=== PATIENT | female | born 1975 | race Caucasian/White ===

== ENCOUNTER → 2021-08-17 07:11 | Outpatient (CLI) | payer SELFPAY ==
--- NOTE | 2021-08-17 07:11 | CT_ITS ---
FINAL REPORT CLINICAL HISTORY: chest pain, nonsmoker 5'8 - 183 lbs FINDINGS: CT CORONARY CALCIUM SCORE W/O TECHNIQUE: Thin-section axial images were obtained through the heart and coronary arteries per CT coronary calcium score protocol. This study was performed with techniques to keep radiation doses as low as reasonably achievable (ALARA). Individualized dose reduction techniques using automated exposure control or adjustment of mA and/or kV according to the patient's size were employed. FINDINGS: On the axial images, there is calcification within the right coronary artery. This gives a coronary artery calcium score of 193 based on the Agatston scale. This coronary artery calcium score places the patient within the 98th percentile based on age and gender. There are large calcified mediastinal lymph nodes. There is a left hilar lymph node. The heart size is normal. There is no pleural or pericardial effusion. Limited evaluation of the lungs reveal calcified granulomas in the left upper lobe consistent with prior granulomatous disease. There are postoperative changes in the stomach. IMPRESSION: Coronary artery calcium score of 193 which places the patient in the 98th percentile based on age and gender. Reviewed, Interpreted and Dictated by Sky Patel III, MD Transcribed by Aydee Car Authenticated by Sky Patel III, MD on 08/17/2021 09:42:54 AM [facility]
== END ==
PROVIDERS: PCP Family Medicine; Visit Provider Physician Assistant
DX: R06.00 Dyspnea, unspecified (principal); R07.89 Other chest pain; R94.31 Abnormal electrocardiogram [ECG] [EKG]; E11.9 Type 2 diabetes mellitus without complications
CPT/HCPCS: 75571

== ENCOUNTER → 2021-08-18 10:39 | Outpatient (CLI) | payer BC, SELFPAY | LOC: RT 10:40 | PROVIDERS: PCP Family Medicine; Visit Provider Physician Assistant | DX: R07.89 Other chest pain (principal); R06.00 Dyspnea, unspecified; E13.69 Other specified diabetes mellitus with other specified complication; R94.31 Abnormal electrocardiogram [ECG] [EKG]; Z79.84 Long term (current) use of oral hypoglycemic drugs | CPT/HCPCS: 78452; 93017; 93306; A9502 ==

== ENCOUNTER 2021-09-24 08:29 | Day surgery (SDC) | payer BC, SELFPAY ==
[2021-09-24] VITALS (13 sets, daily range): BP systolic 93–131; BP diastolic 58–68; PULSE 64–88; RESP 16–20; TEMP 36.5; O2SAT 96–100; BMI 27.6
--- NOTE | 2021-09-24 07:07 | IR_ITS ---
APPROVED REPORT Patient Location: Outpatient PROCEDURES Left heart catheterization Left ventriculogram Selective coronary angiogram INDICATION Abnormal noninvasive tests with elevated calcium score, Angina pectoris Informed consent was obtained prior to the procedure. COMPLICATIONS None Estimated Blood Loss: Less than 10 mls TECHNIQUE One percent lidocaine used to anesthetize the right anterior aspect of the wrist. The right radial artery was accessed via the Seldinger technique. A 6 [place] sheath was placed in the right radial artery. 2.5 mg of verapamil, 800 mcg of nitroglycerin, 1mg Lidocaine and 5000 U Heparin were given through the arterial sheath. The papa catheter was also used to perform left heart catheterization, left ventriculogram and selective coronary angiogram. At the end of the procedure the sheath was removed good hemostasis was achieved using Traclet band, patient was transferred to the postop holding area in stable condition. ANGIOGRAPHIC RESULTS The left main artery Normal The left anterior descending artery Proximally normal with mid vessel 10 to 20% luminal irregularity The circumflex artery Nondominant normal The right coronary artery Dominant normal The [place] ventriculogram reveals Normal 65% The left ventricular end-diastolic pressure 10-15 mmHg IMPRESSION Mild nonflow limiting coronary disease Normal ejection fraction Borderline elevated LVEDP PLAN 1. Medical management Electronically signed by : Jake Merida MD 09/24/2021 11:16:04
[2021-09-24 09:14] LABS: Basophils # 0.1 K/mm3 (0-0.2); Basophils % 2.6 % (0.1-2.0); Eosinophils # 0.2 K/mm3 (0.0-0.4); Eosinophils % 3.7 % (0.1-12.0); Hematocrit 39.2 % (37.0-47.0); Hemoglobin 12.9 g/dL (12.2-16.2); Lymphocytes # 1.6 K/mm3 (0.7-4.5); Lymphocytes % 29.8 % (10-50); Mean Corpuscular HGB Conc 32.9 g/dL (31.8-35.4); Mean Corpuscular Hemoglobin 27.2 pg (27.0-31.2); Mean Corpuscular Volume 82.8 fl (81-99); Mean Platelet Volume 7.8 fl (7.4-10.4); Monocytes # 0.4 K/mm3 (0.1-1.0); Monocytes % 6.5 % (1.7-9.3); Neutrophils # 3.1 K/mm3 (1.8-7.8); Neutrophils % 57.4 % (37.0-80.0); Platelet Count 295 K/mm3 (142-424); Red Blood Count 4.74 M/mm3 (4.20-5.40); Red Cell Distribution Width 14.1 % (11.5-17.5); White Blood Count 5.4 K/mm3 (4.8-10.8)
[2021-09-24 09:25] LABS: Chloride 104 mmol/L (98-107); Sodium 137 mmol/L (136-145)
[2021-09-24 09:28] LABS: Blood Urea Nitrogen 11 mg/dl (7-17); Calcium 8.2 mg/dl (8.4-10.2); Carbon Dioxide 27 mmol/L (22.0-30.0); Creatinine Clearance Estimated 128 mL/min (50-200); Estimated Glomerular Filt Rate 89 ml/min (>60); GFR (African American) 108 ML/MIN (>60); Glucose 108 mg/dl (74-100)
[2021-09-24 09:31] LABS: HCG Qualitative, Serum Negative (Negative)
== END 2021-09-24 14:49 | disposition home or self-care (01) ==
LOC: CATHLAB 08:31
PROVIDERS: PCP Family Medicine; Visit Provider Internal Medicine
DX: I25.118 Atherosclerotic heart disease of native coronary artery with other forms of angina pectoris (principal); E11.69 Type 2 diabetes mellitus with other specified complication; E78.5 Hyperlipidemia, unspecified; R93.1 Abnormal findings on diagnostic imaging of heart and coronary circulation; R06.00 Dyspnea, unspecified; R94.31 Abnormal electrocardiogram [ECG] [EKG]; I10 Essential (primary) hypertension; Z79.84 Long term (current) use of oral hypoglycemic drugs; Z79.899 Other long term (current) drug therapy
CPT/HCPCS: 80048; 84703; 85025; 93458; 99152; C1725; C1769; J1644; Q9967

== ENCOUNTER → 2021-10-04 09:28 | Outpatient (CLI) | payer BC, SELFPAY ==
--- NOTE | 2021-10-04 09:29 | CA_ITS ---
FINAL REPORT CLINICAL HISTORY: PSEUDO CHECK, PT HAD CATH 09/24/21 WITH RT RADIAL ACCESS,KNOT ,THROBBING PAIN FINDINGS: DUPLEX SCAN UPPER EXT ARTERIES UNILA Limited duplex sonography of the right radial artery. Localized thrombus is seen in the distal right radial artery. No pseudoaneurysm or AV fistula seen. IMPRESSION: Distal right radial artery thrombus. Follow-up may be of value. The patient's provider was notified of these findings by the ophthalmic technologist. Reviewed, Interpreted and Dictated by Anam Feldman MD Transcribed by Fernando Tapia Authenticated by Anam Feldman MD on 10/05/2021 08:28:14 AM [facility]
== END ==
PROVIDERS: PCP Family Medicine; Visit Provider Physician Assistant
DX: I72.1 Aneurysm of artery of upper extremity (principal)
CPT/HCPCS: 93931